=== PATIENT | female | born 1970 | race Caucasian/White ===

== ENCOUNTER 2016-03-11 03:13 | Observation (INO) | payer OTHER ==
[~2016-03-11] VITALS: Ht 160 cm; Wt 121.6 kg
[2016-03-11] VITALS (7 sets, daily range): BP systolic 118–171; BP diastolic 55–85
[2016-03-11] MEDS ORDERED: HYDROmorphone HCL 1 MG/ML SYRINGE (J1170) As Ordered ONE ×2 (03:58→05:36)
[2016-03-11] MEDS ORDERED: ONDANSETRON 4MG/2ML VIAL (J2405) As Ordered ONE ×2 (03:59→15:23)
[2016-03-11] MEDS ORDERED: PROPOFOL 200 MG/20 ML VIAL As Ordered ONE ×2 (04:54→14:44)
[2016-03-11] MEDS ORDERED: KETAMINE HCL 200 MG/20 ML VIAL As Ordered ONE (05:19)
[2016-03-11] MEDS ORDERED: diphenhydrAMINE INJ 50MG/ML VIAL (J1200) As Ordered ONE ×2 (06:24→15:24)
--- NOTE | 2016-03-11 07:28 | REP ---
Clinical: Post reduction. Technique: AP and lateral views of the left wrist. Findings: Comminuted displaced fracture of the distal radius and ulna are again appreciated. Impression: Comminuted displaced fractures of the distal radius and ulna. Signed by Christoph Epstein MD 03/11/2016 07:19 A
--- NOTE | 2016-03-11 08:19 | EDDOCDS ---
Physician Documentation [facility] Name: Sonya Chavez Age: 45 yrs Sex: Female : 1970 Arrival Date: 03/11/2016 Time: 03:13 Bed 3 Private MD: Disposition: 03/11/16 05:53 Hospitalization ordered by Yuval Nesbitt for Inpatient Admission. Preliminary diagnosis is Colles' fracture of left radius. - Bed requested for M PED. - Status is Inpatient Admission. hs1 - Condition is Stable. - Problem is an acute exacerbation. - Symptoms have improved. Historical: - Allergies: Codeine Sulfate; Percocet; Reglan; Phenergan; - Home Meds: 1. Lexapro 30mg Oral tab 1 tab once daily 2. omeprazole 40 mg Oral cpDR 1 cap once daily 3. methotrexate sodium 7.5 mg Oral tab 1 tab once wkly 4. folic acid 20 mg Oral cap 5. Seroquel 200 mg Oral tab 1 tab once daily 6. doxycycline hyclate Unknown Oral for bronchitis and sinus infection - PMHx: GERD; Arthritis; neuropathy; - PSHx: Plates in left ankle - 2000; Plate removal left ankle -2003; Tubal ligation; Cystectomy; - Social history: Smoking status: Patient states was never smoker of tobacco. No barriers to communication noted, The patient speaks fluent Swazi, Speaks appropriately for age. - Family history: Not pertinent. - : The pt / caregiver states he / she is not on anticoagulants. Home medication list is obtained from the patient. - Exposure Risk Screening:: None identified. 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 3 in. (160.02 cm); Pain 6/10; 04:01 BP 141 / 81 (auto/); tm5 04:02 Pulse 80; Resp 18; Pulse Ox 96% ; Pain 8/10; tm5 05:00 BP 145 / 72 (auto/); tm5 05:00 Pulse 96 MON; Pulse Ox 97% ; tm5 05:10 BP 128 / 65 (auto/); tm5 05:10 Pulse 92 MON; Resp 16; Pulse Ox 98% on 4 lpm NC; tm5 05:15 BP 143 / 89 (auto/); tm5 05:15 Pulse 97 MON; Pulse Ox 98% ; tm5 05:22 BP 149 / 96 (auto/); tm5 05:22 Pulse 94 MON; Resp 18 S; Pulse Ox 96% on 4 lpm NC; tm5 05:25 BP 143 / 90 (auto/); tm5 05:25 Pulse 86 MON; Resp 18 S; Pulse Ox 98% on 4 lpm NC; tm5 05:35 BP 141 / 78 (auto/); hs1 05:40 BP 120 / 89 (auto/); tm5 05:40 Pulse 102 MON; Pulse Ox 98% ; tm5 05:45 BP 153 / 82 (auto/); tm5 05:45 Pulse 95 MON; Resp 18 S; Pulse Ox 98% on 4 lpm NC; tm5 06:01 BP 131 / 74 (auto/); tm5 06:01 Pulse 100 MON; tm5 06:16 BP 163 / 69 (auto/); tm5 06:16 Pulse 97 MON; tm5 06:26 BP 148 / 54 (auto/); tm5 06:26 Pulse 95 MON; Resp 18 S; Temp 98.7(TE); Pain 6/10; tm5 06:30 BP 153 / 89 (auto/); tm5 06:30 Pulse 100 MON; Resp 18 S; Temp 98.3(TE); Pulse Ox 93% on R/A; Pain 5/10; tm5 08:04 BP 148 / 91 RA Sitting (auto/lg); Pulse 97; Resp 16; Temp 98.3(O); Pulse Ox 95% on R/A; jrd Pain 7/10; 03:29 Body Mass Index 47.47 (121.56 kg, 160.02 cm) nn1 Procedures: 05:26 Moderate sedation: Pre-procedure assessment: the patient has been NPO 6 hour(s) prior mm11 to arrival, ASA physical classification: II - mild/mod systemic disease that does not interfere with daily routines, Airway assessment: able to hyperextend neck, able to maintain airway, can open mouth without difficulty, Mallampati classification of tongue size: II - faucial pillars and soft palate can be visualized, but uvula is masked by the base of the tongue, Monitoring during procedure: nurse at bedside at all times, athletic monitor, continuous pulse oximetry, End Tidal CO2 Medications employed: Propofol _ mg? 180 mgs. Post-procedure assessment: the patient is mildly sedated, Respiratory status: even and unlabored, a reversal agent was not used, Complications: none. Total time spent by provider performing sedation 15 minutes. MDM: 03:49 IV Saline Lock ordered. mm11 03:50 Dilaudid - HYDROmorphone 0.5 mg IVP once ordered. mm11 03:50 Ondansetron 4 mg IVP once ordered. mm11 04:12 Financial registration complete. [facility] 04:21 [facility] [place] Payment Agreement was scanned into [employer] and attached to record. slh 04:36 NS 0.9% 1000 ml IV at 100 mL/hr continuous ordered. mm11 04:36 Propofol (PF)(Moderate Sedation, 0.5mg/kg) 0.5 mg/kg IVP Per protocol; give every 1-2 mm11 minutes until desired level of sedation ordered. 04:36 Call Respiratory ordered. mm11 04:36 Airway Cart to bedside ordered. mm11 04:36 Continuous Merchandise Director and SaO2 with q 5 minute VS during procedure ordered. mm11 04:36 Initiate continuous wave form capnography monitoring ordered. mm11 04:36 Oxygen at 4L/Min NC or Home dosage ordered. mm11 04:37 ECG WITH READING ER PHYS+CARDIAG ordered. EDMS 04:52 Call Respiratory complete. tmm1 05:12 Propofol (PF)(Moderate Sedation, 0.5mg/kg) 60 mg IVP Per protocol; give every 1-2 mm11 minutes until desired level of sedation ordered. 05:25 Dilaudid - HYDROmorphone 0.5 mg IVP once ordered. mm11 05:44 Wrist (AP\E\Lat) Ordered. EDMS 06:06 Admission Orders was scanned into [employer] and attached to record. tmm1 06:18 diphenhydrAMINE 25 mg IVP once ordered. mm11 06:21 NOTHING BY MOUTH+DIET ordered. EDMS 07:29 Wrist, complete Ordered. EDMS Administered Medications: 04:06 Drug: Dilaudid - HYDROmorphone 0.5 mg [hydromorphone 1 mg/mL injection syringe (0.5 tm5 mL)] Route: IVP; Site: right forearm; 04:51 Follow up: Response: No Adverse Reaction; Pain is decreased tm5 04:06 Drug: Ondansetron 4 mg Route: IVP; Site: right forearm; tm5 04:51 Follow up: Response: Nausea is resolved; No Adverse Reaction tm5 05:01 Drug: NS 0.9% 1000 ml [sodium chloride 0.9 % intravenous solution] Route: IV; Rate: 100 tm5 mL/hr; Site: right forearm; 05:12 Not Given (Other Intervention Used): Propofol (PF)(Moderate Sedation, 0.5mg/kg) 0.5 mm11 mg/kg IVP Per protocol; give every 1-2 minutes until desired level of sedation 05:17 Drug: Propofol (PF)(Moderate Sedation, 0.5mg/kg) 60 mg {Note: 180 mg Propofol given by tm5 Dr Jade.} Route: IVP; Site: right forearm; 05:29 Follow up: Response: No Adverse Reaction tm5 05:38 CANCELLED (Other Intervention Used): Propofol (PF, 1mg/kg) 120 mg IVP once mm11 05:38 Drug: Dilaudid - HYDROmorphone 0.5 mg [hydromorphone 1 mg/mL injection syringe (0.5 tm5 mL)] Route: IVP; Site: right forearm; 06:27 Follow up: Response: No Adverse Reaction; Pain is decreased tm5 06:27 Drug: diphenhydrAMINE 25 mg [diphenhydramine 50 mg/mL injection solution (0.5 mL)] tm5 Route: IVP; Site: right forearm; Signatures: Dispatcher [employer] Ishmael Song DO DO mm11 Anahi Balderas RN RN hs1 McLear, Neyda, CARROT GRADER INSPECTOR CARROT GRADER INSPECTOR tmm1 Lizzette Unger NikkoleRN RN nn1 Loi Cuevas RN RN sa Matice, TonyaRN RN tm5 The chart was reviewed and I authenticate all verbal orders and agree with the evaluation and treatment provided.Corrections: (The following items were deleted from the chart) 05:38 05:25 Propofol (PF, 1mg/kg) 120 mg IVP once ordered. mm11 mm11 05:38 05:28 Propofol (PF, 1mg/kg) 120 mg IVP once ordered. tm5 mm11 06:18 05:26 Forearm (Radius/Ulna)+XR ordered. EDMS EDMS Attachments: 04:21 [facility] Payment Agreement [facility] 06:06 Admission Orders tmm1 MTDD
--- NOTE | 2016-03-11 08:19 | EDDOCDS ---
Nurse's Notes [facility] Name: Sonya Chavez Age: 45 yrs Sex: Female : 1970 Arrival Date: 03/11/2016 Time: 03:13 Bed 3 Private MD: Diagnosis: Colles' fracture of left radius Presentation: 03/11 03:21 Presenting complaint: Patient states: seen at [place] ED earlier today, came by POV. nn1 Patient reports she was walking down steps, missed the last step and fell face first. Injured left arm. Per prior ED radiology patient has displaced distal radius of left arm. Patient also reporting pain to left ankle. Suicide/Homicide risk assessment- the patient denies having any suicidal and/or homicidal ideations and does not present with any other emotional, behavioral or mental health complaints. Status: Patient is not a service person or dependent. Transition of care: patient was received from [place]. 03:21 Acuity: MAYTE Level 3 nn1 03:21 Method Of Arrival: Walkin/Carried/Asstd nn1 06:29 Adult Sepsis Screening: The patient does not have new or worsening altered mentation. tm5 Patient's respiratory rate is less than 22. Systolic blood pressure is greater than 100. Patient has a qSOFA score of 0- Negative Sepsis Screen. Triage Assessment: 03:31 General: Appears uncomfortable. General: Patient given 60mg toradol IM, 10mg morphine nn1 IM, 4mg zofran IM prior to leaving ED in [place]. . General: Patient reports pain is becoming worse. Patients left arm splinted upon arrival to ED. . Pain: Location: left arm Pain currently is 6 out of 10 on a pain scale. Pain: Pain currently is 8 out of 10 on a pain scale. Pt Declines HIV testing. The patient is triaged at the bedside. See Assessment in Nurses Notes section of ED record. Neurological: Level of Consciousness is awake, alert, obeys commands, Oriented to person, place, time. Respiratory: No deficits noted. Derm: Skin is pink, warm & dry. Musculoskeletal: Capillary refill < 3 seconds Range of motion limited in left elbow and left wrist Patient reports limited sensation in pointer finger and middle finger of left hand. 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 Lexapro 30mg Oral tab 1 tab once daily 2. omeprazole 40 mg Oral cpDR 1 cap once daily 3. methotrexate sodium 7.5 mg Oral tab 1 tab once wkly 4. folic acid 20 mg Oral cap 5. Seroquel 200 mg Oral tab 1 tab once daily 6. doxycycline hyclate Unknown Oral for bronchitis and sinus infection - PMHx: GERD; Arthritis; neuropathy; - PSHx: Plates in left ankle - 2000; Plate removal left ankle -2003; Tubal ligation; Cystectomy; - Social history: Smoking status: Patient states was never smoker of tobacco. No barriers to communication noted, The patient speaks fluent Macedonian, Speaks appropriately for age. - Family history: Not pertinent. - : The pt / caregiver states he / she is not on anticoagulants. Home medication list is obtained from the patient. - Exposure Risk Screening:: None identified. Screenin:34 Screening information is obtained from the patient. Fall risk: At risk due to prior nn1 history of falls. Assistance ADL's: requires no assistance with activities of daily living. Abuse/DV Screen: The patient / caregiver reports he/she is: not in a situation that causes fear, pain or injury. Nutritional screening: No deficits noted. Advance Directives: Currently, there is no health care proxy. There is no active DNR order. There is no living will. home support is adequate. Assessment: 04:02 General: Appears in no apparent distress, Behavior is appropriate for age, cooperative. tm5 Pain: Location: left wrist, left arm Pain currently is 8 out of 10 on a pain scale. Quality of pain is described as sharp, throbbing. Neurological: Level of Consciousness is awake, alert, Oriented to person, place, time. Respiratory: Airway is patent Respiratory effort is even, unlabored, Respiratory pattern is regular, symmetrical. GI: No deficits noted. : No deficits noted. Derm: Skin is pink, warm & dry. normal. Musculoskeletal: Reports pain in left wrist, left arm pt arrived from another facility with a cock up splint intact to left wrist for left wrist fracture, +CMS, +ROM of left fingers. Injury Description: pt fell from standing. 05:48 General: Dr Nesbitt at bedside speaks to pt about taking her to the OR to repair left tm5 wrist fracture today, pt alert & oriented at this time & talkative, + CMS to left fingers, + ROM to left fingers also . 07:14 General: Appears in no apparent distress, Behavior is appropriate for age, cooperative. hs1 Pain: Location: left arm Pain currently is 2 out of 10 on a pain scale. Quality of pain is described as throbbing. Neurological: No deficits noted. Respiratory: No deficits noted. GI: other patient is aware of NPO status. Derm: Reports itching - as a side effect from pain medication. 08:04 General: Appears in no apparent distress, Behavior is appropriate for age, cooperative, hs1 patient reports very itchy. MD returned call no new orders received by Dr Villa. Pediatric nurses aware of patient and subsequent phone call with Ortho MD regarding itching/anxiety. . Respiratory: No deficits noted. Airway is patent Respiratory effort is even, unlabored, Respiratory pattern is regular, symmetrical. Vital Signs: 03:29 BP 148 / 89; Pulse 89; Resp 18; Temp 98.3(TE); Pulse Ox 96% on R/A; Weight 121.56 kg nn1 (R); Height 5 ft. 3 in. (160.02 cm); Pain 6/10; 04:01 BP 141 / 81 (auto/); tm5 04:02 Pulse 80; Resp 18; Pulse Ox 96% ; Pain 8/10; tm5 05:00 BP 145 / 72 (auto/); tm5 05:00 Pulse 96 MON; Pulse Ox 97% ; tm5 05:10 BP 128 / 65 (auto/); tm5 05:10 Pulse 92 MON; Resp 16; Pulse Ox 98% on 4 lpm NC; tm5 05:15 BP 143 / 89 (auto/); tm5 05:15 Pulse 97 MON; Pulse Ox 98% ; tm5 05:22 BP 149 / 96 (auto/); tm5 05:22 Pulse 94 MON; Resp 18 S; Pulse Ox 96% on 4 lpm NC; tm5 05:25 BP 143 / 90 (auto/); tm5 05:25 Pulse 86 MON; Resp 18 S; Pulse Ox 98% on 4 lpm NC; tm5 05:35 BP 141 / 78 (auto/); hs1 05:40 BP 120 / 89 (auto/); tm5 05:40 Pulse 102 MON; Pulse Ox 98% ; tm5 05:45 BP 153 / 82 (auto/); tm5 05:45 Pulse 95 MON; Resp 18 S; Pulse Ox 98% on 4 lpm NC; tm5 06:01 BP 131 / 74 (auto/); tm5 06:01 Pulse 100 MON; tm5 06:16 BP 163 / 69 (auto/); tm5 06:16 Pulse 97 MON; tm5 06:26 BP 148 / 54 (auto/); tm5 06:26 Pulse 95 MON; Resp 18 S; Temp 98.7(TE); Pain 6/10; tm5 06:30 BP 153 / 89 (auto/); tm5 06:30 Pulse 100 MON; Resp 18 S; Temp 98.3(TE); Pulse Ox 93% on R/A; Pain 5/10; tm5 08:04 BP 148 / 91 RA Sitting (auto/lg); Pulse 97; Resp 16; Temp 98.3(O); Pulse Ox 95% on R/A; jrd Pain 7/10; 03:29 Body Mass Index 47.47 (121.56 kg, 160.02 cm) nn1 Vitals: 03:29 Log In Time: March 11, 2016 at 03:16. nn1 ED Course: 03:15 Patient visited by Jory Quiroz Reg. hs2 03:15 Patient moved to Waiting hs2 03:21 Patient moved to 3 nn1 03:23 Triage Initiated nn1 03:36 Ishmael Jade DO is Attending Physician. mm11 03:36 Patient visited by Ishmael Jade DO. mm11 03:49 Patient visited by Ishmael Jade DO. mm11 03:55 Inserted saline lock: 20 gauge in right forearm The patient tolerated the procedure tm5 well. 04:02 Patient visited by Nataliia Robledo RN. tm5 04:02 The patient / caregiver is instructed regarding the plan of care and ED course. Pulse tm5 ox on. NIBP on. left arm elevated up on pillows . Family accompanied patient. 04:21 Patient name changed from Sonya\S\A\S\Chavez\S\ to Sonya\S\Sully\S\Chavez. EDMS 04:21 [facility] [place] Payment Agreement was scanned into [employer] and attached to record. [facility] 04:34 Patient visited by Ishmael Jade DO. mm11 05:14 EKG done. (by ED staff). Reviewed by Ishmael Jade DO. jmv 05:24 Patient visited by Ishmael Jade DO. mm11 05:52 Yuval Nesbitt is Hospitalizing Provider. mm11 06:06 Admission Orders was scanned into [employer] and attached to record. tmm1 06:28 Awaiting bed assignment. tm5 06:29 No procedures done that require assistance. tm5 06:50 Patient visited by Nataliia Robledo RN. tm5 07:32 Wrist (AP\E\Lat) Returned. EDMS 08:05 Patient visited by James Gomez PCA. jrd M. Sedation: 05:08 Pre-procedure: Name of procedure: left wrist fracture reduction Monitoring RN: Nataliia tm5 Meena RN Other Staff: Dr Nesbitt, Respiratory therapy Derik Keller Reviewed instructions and expectations with patient, Has had drug/anesthesia reactions to known per pt Reviewed patient's current meds list. playground monitor on. Cardiac rhythm Sinus rhythm Pulse ox on. Oxygen via nasal cannula \T\ 4L/min 05:08 Q 5 minute assessment Level of Consciousness: Alert / Oriented Color: [place] Skin: Warm / Dry Pain: 05:08 See Trend VS 05:16 Pre-procedure: Other Staff: Dr Jade pushing medications tm5 05:16 Intra-procedure: Procedure began at 05:16 05:16 Intra-procedure: Patient response: remains sedated, skin warm/dry, obeys commands, resps even/unlabored, IV patent. 05:32 Post-procedure: Procedure ended at 05:22 the total procedure time was less than [address] Nesbitt splinted left wrist & elevated left arm up on pillow, pt is awake & complains of pain to left wrist 07/30 05:45 Meets D/C Criteria: Taking PO fluids, Skin is warm and dry, LOC is at preprocedure tm5 level, Motor / Sensory control is returned, Protective reflexes are intact, Written post-sedation instructions are given, Pt is admitted to hospital or transferred to another facility. Administered Medications: 04:06 Drug: Dilaudid - HYDROmorphone 0.5 mg [hydromorphone 1 mg/mL injection syringe (0.5 tm5 mL)] Route: IVP; Site: right forearm; 04:51 Follow up: Response: No Adverse Reaction; Pain is decreased tm5 04:06 Drug: Ondansetron 4 mg Route: IVP; Site: right forearm; tm5 04:51 Follow up: Response: Nausea is resolved; No Adverse Reaction tm5 05:01 Drug: NS 0.9% 1000 ml [sodium chloride 0.9 % intravenous solution] Route: IV; Rate: 100 tm5 mL/hr; Site: right forearm; 05:12 Not Given (Other Intervention Used): Propofol (PF)(Moderate Sedation, 0.5mg/kg) 0.5 mm11 mg/kg IVP Per protocol; give every 1-2 minutes until desired level of sedation 05:17 Drug: Propofol (PF)(Moderate Sedation, 0.5mg/kg) 60 mg {Note: 180 mg Propofol given by tm5 Dr Jade.} Route: IVP; Site: right forearm; 05:29 Follow up: Response: No Adverse Reaction tm5 05:38 CANCELLED (Other Intervention Used): Propofol (PF, 1mg/kg) 120 mg IVP once mm11 05:38 Drug: Dilaudid - HYDROmorphone 0.5 mg [hydromorphone 1 mg/mL injection syringe (0.5 tm5 mL)] Route: IVP; Site: right forearm; 06:27 Follow up: Response: No Adverse Reaction; Pain is decreased tm5 06:27 Drug: diphenhydrAMINE 25 mg [diphenhydramine 50 mg/mL injection solution (0.5 mL)] 5 Route: IVP; Site: right forearm; RT: 05:43 Sedation Time: 35Minutes. O2 via nasal cannula \T\ 4L/min. jc3 05:43 O2 via ETCO2 on patient throughout procedure. jc3 Order Results: Radiology Order: Wrist (AP\E\Lat) Test: Wrist (AP\E\Lat) REASON FOR EXAMINATION: post reduction; Clinical: Post reduction.; ; Technique: AP and lateral views of the left wrist.; ; Findings:; Comminuted displaced fracture of the distal radius and ulna are again; appreciated.; ; Impression:; Comminuted displaced fractures of the distal radius and ulna.; ; ; Signed by; Christoph Epstein MD 03/11/2016 07:19 A; Outcome: 05:53 Decision to Hospitalize by Provider. mm11 06:29 Discharge Assessment: patient administered narcotics - yes. Patient was admitted to the [address] or transferred to another facility. No special radiology studies were completed. 08:05 The following High Risk Discharge criteria are identified: None. Admitted to Pediatrics hs1 accompanied by nurse, accompanied by tech, via wheelchair, with chart. Condition: stable. Admission hand-off: Report called to Jodee DRUMMOND. Property sent home with patient. 08:18 Patient left the ED. [facility] Signatures: Dispatcher [employer] EDMS Ishmael Jade, DO mm11 James Chaves jc3 Anahi Balderas RN RN hs1 Neyda Looney, INTERN ARCHITECT INTERN ARCHITECT tmm1 James Gomez, INTERN ARCHITECT INTERN ARCHITECT Lizzette Cullen Nikkole, RN RN nn1 Jory Quiroz, Reg Reg hs2 Bear Willson, INTERN ARCHITECT INTERN ARCHITECT Nataliia Hoover RN RN 5 Corrections: (The following items were deleted from the chart) 03:35 03:21 Nicole Sandoval,HODA is Primary Nurse. formerly [facility], [id number] 03:43 03:29 BP 148 / 289; Pulse 89bpm; Resp 18bpm; Pulse Ox 96% RA; Temp 98.3F Temporal; nn1 121.56 kg Reported; Height 5 ft. 3 in.; BMI: 47.4; Pain 6/10; nn1 05:19 05:17 Propofol (PF)(Moderate Sedation, 0.5mg/kg) 60 mg IVP in right forearm [place] [id number] 05:28 05:20 Propofol (PF, 1mg/kg) 120 mg IVP in right forearm [place] [id number] 05:44 05:17 Propofol (PF)(Moderate Sedation, 0.5mg/kg) 60 mg IVP in right forearm [facility] MTDD
[2016-03-11] MEDS ORDERED: FOLI1TAB2 PO (08:59)
[2016-03-11] MEDS ORDERED: LEXA1TAB PO (08:59)
[2016-03-11] MEDS ORDERED: METH2.5TA PO (08:59)
[2016-03-11] MEDS ORDERED: SERO200T PO (08:59)
[2016-03-11] MEDS ORDERED: OMEP40CA2 PO (08:59)
[2016-03-11] MEDS ORDERED: PERC5TAB6 PO (09:00)
[2016-03-11] MEDS ORDERED: ONDANSETRON 4 MG TAB (S0181) PO PRN (09:30)
[2016-03-11] MEDS ORDERED: PERCOCET 5MG/325MG TAB PO PRN ×3 (09:30→18:15)
[2016-03-11] MEDS: diphenhydrAMINE 25 MG CAP PO PRN ×2 (09:35→18:46)
[2016-03-11] MEDS ORDERED: TRAM50TA2 PO (09:38)
[2016-03-11] MEDS ORDERED: traMADol 50 MG TAB PO PRN (09:45)
[2016-03-11] MEDS ORDERED: KETOROLAC 30 MG/ML VIAL (J1885) IV ONE (09:45)
[2016-03-11] MEDS ORDERED: ACETAMINOPHEN TAB 650MG DOSE (2X325MG) PO PRN (10:00)
--- NOTE | 2016-03-11 11:21 | ER ---
DATE OF PROCEDURE: 03/11/2016 She is a 45-year-old female with a past medical history of anxiety, depression, rheumatoid arthritis, and gastroesophageal reflux disease, who was in her normal state of health and missed a step, falling to her left outstretched upper extremities, sustaining a closed distal radius and ulna fracture. She was seen in [place] at the emergency room and transferred to [facility] for more definitive care in a splint. PAST SURGICAL HISTORY: Significant for left leg by Dr. Riley at [facility], as well as six excisions from her submandibular area and chest. ALLERGIES: No allergies. SOCIAL HISTORY: Denies smoking. No current drinking because of her current medications, which include: - methotrexate - Seroquel - omeprazole - Lexapro PHYSICAL EXAMINATION: She has pain and deformity in the left upper extremity, the distal radius. She is neurovascularly intact in regard to the radial ulnar median nerve. No tenderness at the elbow. No other complaints. X-rays demonstrated displaced extraarticular distal radius and ulna fracture. IMPRESSION: Displaced extraarticular distal radius and ulna fracture. RECOMMENDATION: Closed reduction and splinting. Post reduction splint x-rays demonstrated suboptimal reduction and current plan is open reduction, internal fixation (ORIF) in the operating room when available.
[2016-03-11] MEDS ORDERED: ceFAZolin 1GM INJ (J0690) As Ordered ONE (13:40)
[2016-03-11] MEDS ORDERED: LIDOCAINE 2% INJ 100 MG/5 ML SDV (FOR ANES.) As Ordered ONE (14:44)
[2016-03-11] MEDS ORDERED: dexameTHASONE 4 MG/ML 1ML VIAL (J1100) As Ordered ONE (14:44)
[2016-03-11] MEDS ORDERED: MIDAZOLAM INJ 2 MG/2 ML VIAL (J2250) As Ordered ONE (14:44)
[2016-03-11] MEDS ORDERED: fentaNYL 100 MCG/2 ML INJECTION (J3010) As Ordered ONE ×3 (14:44→16:21)
[2016-03-11] MEDS ORDERED: ROCURONIUM BROMIDE 50 MG/5 ML VIAL As Ordered ONE (14:44)
[2016-03-11] MEDS ORDERED: ePHEDrine SULFATE 25 MG/5 ML(5MG/ML) SYRINGE As Ordered ONE (14:49)
[2016-03-11] MEDS ORDERED: ceFAZolin 1GM INJ (J0690) IR ONE (14:57)
[2016-03-11] MEDS ORDERED: NEOSTIGMINE 1MG/ML 5 ML SYRINGE (J2710) As Ordered ONE (15:23)
[2016-03-11] MEDS ORDERED: KETOROLAC 60 MG/2 ML VIAL (J1885) As Ordered ONE (15:23)
[2016-03-11] MEDS ORDERED: GLYCOPYRROLATE INJ 0.2 MG/ML 2 ML VIAL As Ordered ONE (15:23)
[2016-03-11] MEDS ORDERED: BUPIVACAINE HCL 0.5% 30 ML VIAL As Ordered ONE (15:36)
[2016-03-11] MEDS ORDERED: PERCOCET 5MG/325MG TAB As Ordered ONE ×2 (16:21→16:43)
[2016-03-11] MEDS: fentaNYL 100 MCG/2 ML INJECTION (J3010) IV PRN ×4 (16:23→16:40)
[2016-03-11] MEDS: PERCOCET 5MG/325MG TAB PO PRN ×2 (16:28→16:50)
[2016-03-11] MEDS ORDERED: LR 1,000 ML IV SCH (16:30)
[2016-03-11] MEDS ORDERED: ONDANSETRON 4MG/2ML VIAL (J2405) IV PRN (16:30)
[2016-03-11] MEDS ORDERED: diphenhydrAMINE INJ 50MG/ML VIAL (J1200) IV PRN (16:30)
[2016-03-11] MEDS ORDERED: KETOROLAC 30 MG/ML VIAL (J1885) IV PRN (16:30)
--- NOTE | 2016-03-11 16:46 | REP ---
LEFT WRIST, FOUR VIEWS: HISTORY: Fracture. COMPARISON: 03/11/2016 Four portable radiographs were obtained with a C-ARM. The patient is status-post ORIF of a comminuted fracture of the distal radius. A metal plate a screws are present. There is a comminuted fracture of the distal ulna. There is anatomic alignment. IMPRESSION: The patient is status-post ORIF of a fracture of the distal radius. There is anatomic alignment. Signed by Damaso Amador MD 03/14/2016 08:33 A
[2016-03-11] MEDS ORDERED: diphenhydrAMINE 25 MG CAP PO PRN (18:15)
[2016-03-11] MEDS ORDERED: MORPHINE 2 MG/ML 1ML SYRINGE IV PRN (18:15)
[2016-03-11] MEDS: traMADol 50 MG TAB PO PRN (20:34)
--- NOTE | 2016-03-11 20:38 | RO ---
DATE OF PROCEDURE: 03/11/2016 PREPROCEDURE DIAGNOSIS: Intraarticular distal radius fracture on the left side. POSTPROCEDURE DIAGNOSIS: Intraarticular distal radius fracture on the left side. PROCEDURE PERFORMED: Open reduction and internal fixation (ORIF) with Daron plate and screw construct. SURGEON: Yuval Nesbitt MD BUSINESS SOLUTIONS ANALYST: Theresa Hameed ANESTHESIOLOGIST: Dr. Ellis TOURNIQUET TIME: Less than one hour at 250 mmHg. COMPLICATIONS: None. BLOOD LOSS: Minimal. INDICATIONS: 45-year-old female with an unstable left intraarticular distal radius fracture. After discussing the risks and benefits of operative intervention, she elected to proceed. DESCRIPTION OF PROCEDURE: The patient was met in the preoperative holding area. The operative site was initialed by the surgeon. IV access was verified. Consent was verified. She was taken to the operative suite. She was prepped and draped in the usual sterile fashion in the supine position with her arm over the hand table. Formal time out was performed. IV antibiotics were infused. Preoperative fluoroscopic images were obtained demonstrating an intraarticular fracture. We inflated the tourniquet and made a standard volar approach to the wrist through the floor of the flexor carpi radialis tendon sheath and quickly identified the pronator quadratus. We were careful to avoid the neurovascular structures medially and laterally to the approach. We detached the pronator quadratus from the distal radius to expose the fracture site. We irrigated copiously to clear away any fracture hematoma. We performed a partial reduction and held it in place with a K wire and the radial styloid. We next chose a four hole distal radius locking plate and positioned it on the volar surface of the radius and placed the screw in the sliding hole and verified its position fluoroscopically and clinically in orthogonal planes. Once this was in acceptable position, we sequentially added distal compression and locking screws. We filled the holes in the plate, constantly verifying the position of the hardware and the fracture. No hardware was in the radiocarpal joint at the end of the procedure and the radial inclination, radial height and volar tilt were all restored with the fixation in place. She was irrigated, copiously closed in layers, and placed in a sterile volar splint, awakened and taken to the recovery room in stable condition. Postoperative examination immediately demonstrated full sensation in the radial, ulna and medial nerve distribution in full range of motion of the digits. She will be discharged when she is comfortable and followup in the orthopedic clinic with Branson Rickey in the next 10 days or so.
[2016-03-12] VITALS: BP 117/61
[2016-03-12 04:00] VITALS: BP 103/56
[2016-03-12] MEDS: traMADol 50 MG TAB PO PRN (06:41)
[2016-03-12] MEDS ORDERED: PERC5TAB6 PO (06:44)
[2016-03-12] MEDS ORDERED: BENA25TA9 PO (06:50)
[2016-03-12 08:00] VITALS: BP 117/59
--- NOTE | 2016-03-12 08:03 | ECGEPIP ---
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
--- NOTE | 2016-03-13 09:18 | EDDOCDS ---
Physician Documentation [facility] Name: Sonya Chavez Age: 45 yrs Sex: Female : 1970 Arrival Date: 03/11/2016 Time: 03:13 Bed 3 Private MD: Disposition: 03/11/16 05:53 Hospitalization ordered by Yuval Nesbitt for Inpatient Admission. Preliminary diagnosis is Colles' fracture of left radius. - Bed requested for M PED. - Status is Inpatient Admission. hs1 - Condition is Stable. - Problem is an acute exacerbation. - Symptoms have improved. Historical: - Allergies: Codeine Sulfate; Percocet; Reglan; Phenergan; - Home Meds: 1. Lexapro 30mg Oral tab 1 tab once daily 2. omeprazole 40 mg Oral cpDR 1 cap once daily 3. methotrexate sodium 7.5 mg Oral tab 1 tab once wkly 4. folic acid 20 mg Oral cap 5. Seroquel 200 mg Oral tab 1 tab once daily 6. doxycycline hyclate Unknown Oral for bronchitis and sinus infection - PMHx: GERD; Arthritis; neuropathy; - PSHx: Plates in left ankle - 2000; Plate removal left ankle -2003; Tubal ligation; Cystectomy; - Social history: Smoking status: Patient states was never smoker of tobacco. No barriers to communication noted, The patient speaks fluent Taiwanese, Speaks appropriately for age. - Family history: Not pertinent. - : The pt / caregiver states he / she is not on anticoagulants. Home medication list is obtained from the patient. - Exposure Risk Screening:: None identified. 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 3 in. (160.02 cm); Pain 6/10; 04:01 BP 141 / 81 (auto/); tm5 04:02 Pulse 80; Resp 18; Pulse Ox 96% ; Pain 8/10; tm5 05:00 BP 145 / 72 (auto/); tm5 05:00 Pulse 96 MON; Pulse Ox 97% ; tm5 05:10 BP 128 / 65 (auto/); tm5 05:10 Pulse 92 MON; Resp 16; Pulse Ox 98% on 4 lpm NC; tm5 05:15 BP 143 / 89 (auto/); tm5 05:15 Pulse 97 MON; Pulse Ox 98% ; tm5 05:22 BP 149 / 96 (auto/); tm5 05:22 Pulse 94 MON; Resp 18 S; Pulse Ox 96% on 4 lpm NC; tm5 05:25 BP 143 / 90 (auto/); tm5 05:25 Pulse 86 MON; Resp 18 S; Pulse Ox 98% on 4 lpm NC; tm5 05:35 BP 141 / 78 (auto/); hs1 05:40 BP 120 / 89 (auto/); tm5 05:40 Pulse 102 MON; Pulse Ox 98% ; tm5 05:45 BP 153 / 82 (auto/); tm5 05:45 Pulse 95 MON; Resp 18 S; Pulse Ox 98% on 4 lpm NC; tm5 06:01 BP 131 / 74 (auto/); tm5 06:01 Pulse 100 MON; tm5 06:16 BP 163 / 69 (auto/); tm5 06:16 Pulse 97 MON; tm5 06:26 BP 148 / 54 (auto/); tm5 06:26 Pulse 95 MON; Resp 18 S; Temp 98.7(TE); Pain 6/10; tm5 06:30 BP 153 / 89 (auto/); tm5 06:30 Pulse 100 MON; Resp 18 S; Temp 98.3(TE); Pulse Ox 93% on R/A; Pain 5/10; tm5 08:04 BP 148 / 91 RA Sitting (auto/lg); Pulse 97; Resp 16; Temp 98.3(O); Pulse Ox 95% on R/A; jrd Pain 7/10; 03:29 Body Mass Index 47.47 (121.56 kg, 160.02 cm) nn1 Procedures: 05:26 Moderate sedation: Pre-procedure assessment: the patient has been NPO 6 hour(s) prior mm11 to arrival, ASA physical classification: II - mild/mod systemic disease that does not interfere with daily routines, Airway assessment: able to hyperextend neck, able to maintain airway, can open mouth without difficulty, Mallampati classification of tongue size: II - faucial pillars and soft palate can be visualized, but uvula is masked by the base of the tongue, Monitoring during procedure: nurse at bedside at all times, learning support teacher, continuous pulse oximetry, End Tidal CO2 Medications employed: Propofol _ mg? 180 mgs. Post-procedure assessment: the patient is mildly sedated, Respiratory status: even and unlabored, a reversal agent was not used, Complications: none. Total time spent by provider performing sedation 15 minutes. MDM: 03:49 IV Saline Lock ordered. mm11 03:50 Dilaudid - HYDROmorphone 0.5 mg IVP once ordered. mm11 03:50 Ondansetron 4 mg IVP once ordered. mm11 04:12 Financial registration complete. [facility] 04:21 [facility] [place] Agreement was scanned into [facility] and attached to record. slh 04:36 NS 0.9% 1000 ml IV at 100 mL/hr continuous ordered. mm11 04:36 Propofol (PF)(Moderate Sedation, 0.5mg/kg) 0.5 mg/kg IVP Per protocol; give every 1-2 mm11 minutes until desired level of sedation ordered. 04:36 Call Respiratory ordered. mm11 04:36 Airway Cart to bedside ordered. mm11 04:36 Continuous Typewriter Operator Automatic and SaO2 with q 5 minute VS during procedure ordered. mm11 04:36 Initiate continuous wave form capnography monitoring ordered. mm11 04:36 Oxygen at 4L/Min NC or Home dosage ordered. mm11 04:37 ECG WITH READING ER PHYS+CARDIAG ordered. EDMS 04:52 Call Respiratory complete. tmm1 05:12 Propofol (PF)(Moderate Sedation, 0.5mg/kg) 60 mg IVP Per protocol; give every 1-2 mm11 minutes until desired level of sedation ordered. 05:25 Dilaudid - HYDROmorphone 0.5 mg IVP once ordered. mm11 05:44 Wrist (AP\E\Lat) Ordered. EDMS 06:06 Admission Orders was scanned into [facility] and attached to record. tmm1 06:18 diphenhydrAMINE 25 mg IVP once ordered. mm11 06:21 NOTHING BY MOUTH+DIET ordered. EDMS 07:29 Wrist, complete Ordered. EDMS 14:13 T-Sheet-- Draft Copy was scanned into [facility] and attached to record. gb 14:13 ECG/EKG was scanned into [facility] and attached to record. gb 14:14 Consents was scanned into [facility] and attached to record. gb 14:14 [place] Protocol was scanned into [facility] and attached to record. gb Administered Medications: 04:06 Drug: Dilaudid - HYDROmorphone 0.5 mg [hydromorphone 1 mg/mL injection syringe (0.5 tm5 mL)] Route: IVP; Site: right forearm; 04:51 Follow up: Response: No Adverse Reaction; Pain is decreased tm5 04:06 Drug: Ondansetron 4 mg Route: IVP; Site: right forearm; tm5 04:51 Follow up: Response: Nausea is resolved; No Adverse Reaction tm5 05:01 Drug: NS 0.9% 1000 ml [sodium chloride 0.9 % intravenous solution] Route: IV; Rate: 100 tm5 mL/hr; Site: right forearm; 05:12 Not Given (Other Intervention Used): Propofol (PF)(Moderate Sedation, 0.5mg/kg) 0.5 mm11 mg/kg IVP Per protocol; give every 1-2 minutes until desired level of sedation 05:17 Drug: Propofol (PF)(Moderate Sedation, 0.5mg/kg) 60 mg {Note: 180 mg Propofol given by tm5 Dr Jade.} Route: IVP; Site: right forearm; 05:29 Follow up: Response: No Adverse Reaction tm5 05:38 CANCELLED (Other Intervention Used): Propofol (PF, 1mg/kg) 120 mg IVP once mm11 05:38 Drug: Dilaudid - HYDROmorphone 0.5 mg [hydromorphone 1 mg/mL injection syringe (0.5 tm5 mL)] Route: IVP; Site: right forearm; 06:27 Follow up: Response: No Adverse Reaction; Pain is decreased tm5 06:27 Drug: diphenhydrAMINE 25 mg [diphenhydramine 50 mg/mL injection solution (0.5 mL)] tm5 Route: IVP; Site: right forearm; Signatures: Dispatcher [employer] EDMS Wendi Mchugh, Reg Reg Ishmael Momin, DO mm11 Anahi Balderas RN RN hs1 McLear, Neyda, 7TH GRADE SOCIAL STUDIES TEACHER 7TH GRADE SOCIAL STUDIES TEACHER tmm1 Lizzette Unger Nikkole, RN RN nn1 Loi Cuevas RN RN sa Nataliia Robledo RN RN tm5 The chart was reviewed and I authenticate all verbal orders and agree with the evaluation and treatment provided.Corrections: (The following items were deleted from the chart) 05:38 05:25 Propofol (PF, 1mg/kg) 120 mg IVP once ordered. mm11 mm11 05:38 05:28 Propofol (PF, 1mg/kg) 120 mg IVP once ordered. tm5 mm11 06:18 05:26 Forearm (Radius/Ulna)+XR ordered. EDMS EDMS Attachments: 04:21 [facility] Payment Agreement special care hospital 06:06 Admission Orders tmm1 14:13 T-Sheet-- Draft Copy gb 14:13 ECG/EKG gb Chart Complete MTDD
--- NOTE | 2016-03-13 09:18 | EDDOCDS ---
Nurse's Notes [facility] Name: Sonya Chavez Age: 45 yrs Sex: Female : 1970 Arrival Date: 03/11/2016 Time: 03:13 Bed 3 Private MD: Diagnosis: Colles' fracture of left radius Presentation: 03/11 03:21 Presenting complaint: Patient states: seen at [place] ED earlier today, came by POV. nn1 Patient reports she was walking down steps, missed the last step and fell face first. Injured left arm. Per prior ED radiology patient has displaced distal radius of left arm. Patient also reporting pain to left ankle. Suicide/Homicide risk assessment- the patient denies having any suicidal and/or homicidal ideations and does not present with any other emotional, behavioral or mental health complaints. Status: Patient is not a director of customer service or dependent. Transition of care: patient was received from [place]. 03:21 Acuity: MAYTE Level 3 nn1 03:21 Method Of Arrival: Walkin/Carried/Asstd nn1 06:29 Adult Sepsis Screening: The patient does not have new or worsening altered mentation. tm5 Patient's respiratory rate is less than 22. Systolic blood pressure is greater than 100. Patient has a qSOFA score of 0- Negative Sepsis Screen. Triage Assessment: 03:31 General: Appears uncomfortable. General: Patient given 60mg toradol IM, 10mg morphine nn1 IM, 4mg zofran IM prior to leaving ED in [place]. . General: Patient reports pain is becoming worse. Patients left arm splinted upon arrival to ED. . Pain: Location: left arm Pain currently is 6 out of 10 on a pain scale. Pain: Pain currently is 8 out of 10 on a pain scale. Pt Declines HIV testing. The patient is triaged at the bedside. See Assessment in Nurses Notes section of ED record. Neurological: Level of Consciousness is awake, alert, obeys commands, Oriented to person, place, time. Respiratory: No deficits noted. Derm: Skin is pink, warm & dry. Musculoskeletal: Capillary refill < 3 seconds Range of motion limited in left elbow and left wrist Patient reports limited sensation in pointer finger and middle finger of left hand. DIRECTOR OF MEDIA: 03:29 LMP N/A - Uterine ablation nn1 Historical: - Allergies: Codeine Sulfate; Percocet; Reglan; Phenergan; - Home Meds: 1. Lexapro 30mg Oral tab 1 tab once daily 2. omeprazole 40 mg Oral cpDR 1 cap once daily 3. methotrexate sodium 7.5 mg Oral tab 1 tab once wkly 4. folic acid 20 mg Oral cap 5. Seroquel 200 mg Oral tab 1 tab once daily 6. doxycycline hyclate Unknown Oral for bronchitis and sinus infection - PMHx: GERD; Arthritis; neuropathy; - PSHx: Plates in left ankle - 2000; Plate removal left ankle -2003; Tubal ligation; Cystectomy; - Social history: Smoking status: Patient states was never smoker of tobacco. No barriers to communication noted, The patient speaks fluent Upper Sorbian, Speaks appropriately for age. - Family history: Not pertinent. - : The pt / caregiver states he / she is not on anticoagulants. Home medication list is obtained from the patient. - Exposure Risk Screening:: None identified. Screenin:34 Screening information is obtained from the patient. Fall risk: At risk due to prior nn1 history of falls. Assistance ADL's: requires no assistance with activities of daily living. Abuse/DV Screen: The patient / caregiver reports he/she is: not in a situation that causes fear, pain or injury. Nutritional screening: No deficits noted. Advance Directives: Currently, there is no health care proxy. There is no active DNR order. There is no living will. home support is adequate. Assessment: 04:02 General: Appears in no apparent distress, Behavior is appropriate for age, cooperative. tm5 Pain: Location: left wrist, left arm Pain currently is 8 out of 10 on a pain scale. Quality of pain is described as sharp, throbbing. Neurological: Level of Consciousness is awake, alert, Oriented to person, place, time. Respiratory: Airway is patent Respiratory effort is even, unlabored, Respiratory pattern is regular, symmetrical. GI: No deficits noted. : No deficits noted. Derm: Skin is pink, warm & dry. normal. Musculoskeletal: Reports pain in left wrist, left arm pt arrived from another facility with a cock up splint intact to left wrist for left wrist fracture, +CMS, +ROM of left fingers. Injury Description: pt fell from standing. 05:48 General: Dr Nesbitt at bedside speaks to pt about taking her to the OR to repair left tm5 wrist fracture today, pt alert & oriented at this time & talkative, + CMS to left fingers, + ROM to left fingers also . 07:14 General: Appears in no apparent distress, Behavior is appropriate for age, cooperative. hs1 Pain: Location: left arm Pain currently is 2 out of 10 on a pain scale. Quality of pain is described as throbbing. Neurological: No deficits noted. Respiratory: No deficits noted. GI: other patient is aware of NPO status. Derm: Reports itching - as a side effect from pain medication. 08:04 General: Appears in no apparent distress, Behavior is appropriate for age, cooperative, hs1 patient reports very itchy. MD returned call no new orders received by Dr Villa. Pediatric nurses aware of patient and subsequent phone call with Ortho MD regarding itching/anxiety. . Respiratory: No deficits noted. Airway is patent Respiratory effort is even, unlabored, Respiratory pattern is regular, symmetrical. Vital Signs: 03:29 BP 148 / 89; Pulse 89; Resp 18; Temp 98.3(TE); Pulse Ox 96% on R/A; Weight 121.56 kg nn1 (R); Height 5 ft. 3 in. (160.02 cm); Pain 6/10; 04:01 BP 141 / 81 (auto/); tm5 04:02 Pulse 80; Resp 18; Pulse Ox 96% ; Pain 8/10; tm5 05:00 BP 145 / 72 (auto/); tm5 05:00 Pulse 96 MON; Pulse Ox 97% ; tm5 05:10 BP 128 / 65 (auto/); tm5 05:10 Pulse 92 MON; Resp 16; Pulse Ox 98% on 4 lpm NC; tm5 05:15 BP 143 / 89 (auto/); tm5 05:15 Pulse 97 MON; Pulse Ox 98% ; tm5 05:22 BP 149 / 96 (auto/); tm5 05:22 Pulse 94 MON; Resp 18 S; Pulse Ox 96% on 4 lpm NC; tm5 05:25 BP 143 / 90 (auto/); tm5 05:25 Pulse 86 MON; Resp 18 S; Pulse Ox 98% on 4 lpm NC; tm5 05:35 BP 141 / 78 (auto/); hs1 05:40 BP 120 / 89 (auto/); tm5 05:40 Pulse 102 MON; Pulse Ox 98% ; tm5 05:45 BP 153 / 82 (auto/); tm5 05:45 Pulse 95 MON; Resp 18 S; Pulse Ox 98% on 4 lpm NC; tm5 06:01 BP 131 / 74 (auto/); tm5 06:01 Pulse 100 MON; tm5 06:16 BP 163 / 69 (auto/); tm5 06:16 Pulse 97 MON; tm5 06:26 BP 148 / 54 (auto/); tm5 06:26 Pulse 95 MON; Resp 18 S; Temp 98.7(TE); Pain 6/10; tm5 06:30 BP 153 / 89 (auto/); tm5 06:30 Pulse 100 MON; Resp 18 S; Temp 98.3(TE); Pulse Ox 93% on R/A; Pain 5/10; tm5 08:04 BP 148 / 91 RA Sitting (auto/lg); Pulse 97; Resp 16; Temp 98.3(O); Pulse Ox 95% on R/A; jrd Pain 7/10; 03:29 Body Mass Index 47.47 (121.56 kg, 160.02 cm) nn1 Vitals: 03:29 Log In Time: March 11, 2016 at 03:16. nn1 ED Course: 03:15 Patient visited by Jory Quiroz Reg. hs2 03:15 Patient moved to Waiting hs2 03:21 Patient moved to 3 nn1 03:23 Triage Initiated nn1 03:36 Ishmael Jade DO is Attending Physician. mm11 03:36 Patient visited by Ishmael Jade DO. mm11 03:49 Patient visited by Ishmael Jade DO. mm11 03:55 Inserted saline lock: 20 gauge in right forearm The patient tolerated the procedure tm5 well. 04:02 Patient visited by Nataliia Robledo RN. tm5 04:02 The patient / caregiver is instructed regarding the plan of care and ED course. Pulse tm5 ox on. NIBP on. left arm elevated up on pillows . Family accompanied patient. 04:21 Patient name changed from Sonya\S\A\S\Chavez\S\ to Sonya\S\Sully\S\Chavez. EDMS 04:21 [facility] Payment Agreement was scanned into [employer] and attached to record. [facility] 04:34 Patient visited by Ishmael Jade DO. mm11 05:14 EKG done. (by ED staff). Reviewed by Ishmael Jade DO. jmv 05:24 Patient visited by Ishmael Jade DO. mm11 05:52 Yuval Nesbitt is Hospitalizing Provider. mm11 06:06 Admission Orders was scanned into [employer] and attached to record. tmm1 06:28 Awaiting bed assignment. tm5 06:29 No procedures done that require assistance. tm5 06:50 Patient visited by Nataliia Robledo,HODA. tm5 07:32 Wrist (AP\E\Lat) Returned. EDMS 08:05 Patient visited by James Gomez PCA. jrd 14:13 T-Sheet-- Draft Copy was scanned into [employer] and attached to record. gb 14:13 ECG/EKG was scanned into [employer] and attached to record. gb 14:14 Consents was scanned into [employer] and attached to record. gb 14:14 [place] Protocol was scanned into [employer] and attached to record. gb M. Sedation: 05:08 Pre-procedure: Name of procedure: left wrist fracture reduction Monitoring RN: Nataliia tm5 Meena DRUMMOND Other Staff: Dr Nesbitt, Respiratory therapy Derik Keller Reviewed instructions and expectations with patient, Has had drug/anesthesia reactions to known per pt Reviewed patient's current meds list. shelter monitor on. Cardiac rhythm Sinus rhythm Pulse ox on. Oxygen via nasal cannula \T\ 4L/min 05:08 Q 5 minute assessment Level of Consciousness: Alert / Oriented Color: [place] Skin: Warm / Dry Pain: 05:08 See Trend VS 05:16 Pre-procedure: Other Staff: Dr Jade pushing medications tm5 05:16 Intra-procedure: Procedure began at 05:16 05:16 Intra-procedure: Patient response: remains sedated, skin warm/dry, obeys commands, resps even/unlabored, IV patent. 05:32 Post-procedure: Procedure ended at 05:22 the total procedure time was less than [address] Nesbitt splinted left wrist & elevated left arm up on pillow, pt is awake & complains of pain to left wrist 07/30 05:45 Meets D/C Criteria: Taking PO fluids, Skin is warm and dry, LOC is at preprocedure tm5 level, Motor / Sensory control is returned, Protective reflexes are intact, Written post-sedation instructions are given, Pt is admitted to hospital or transferred to another facility. Administered Medications: 04:06 Drug: Dilaudid - HYDROmorphone 0.5 mg [hydromorphone 1 mg/mL injection syringe (0.5 tm5 mL)] Route: IVP; Site: right forearm; 04:51 Follow up: Response: No Adverse Reaction; Pain is decreased tm5 04:06 Drug: Ondansetron 4 mg Route: IVP; Site: right forearm; tm5 04:51 Follow up: Response: Nausea is resolved; No Adverse Reaction tm5 05:01 Drug: NS 0.9% 1000 ml [sodium chloride 0.9 % intravenous solution] Route: IV; Rate: 100 tm5 mL/hr; Site: right forearm; 05:12 Not Given (Other Intervention Used): Propofol (PF)(Moderate Sedation, 0.5mg/kg) 0.5 mm11 mg/kg IVP Per protocol; give every 1-2 minutes until desired level of sedation 05:17 Drug: Propofol (PF)(Moderate Sedation, 0.5mg/kg) 60 mg {Note: 180 mg Propofol given by tm5 Dr Jade.} Route: IVP; Site: right forearm; 05:29 Follow up: Response: No Adverse Reaction tm5 05:38 CANCELLED (Other Intervention Used): Propofol (PF, 1mg/kg) 120 mg IVP once mm11 05:38 Drug: Dilaudid - HYDROmorphone 0.5 mg [hydromorphone 1 mg/mL injection syringe (0.5 tm5 mL)] Route: IVP; Site: right forearm; 06:27 Follow up: Response: No Adverse Reaction; Pain is decreased tm5 06:27 Drug: diphenhydrAMINE 25 mg [diphenhydramine 50 mg/mL injection solution (0.5 mL)] tm5 Route: IVP; Site: right forearm; Attachments: 14:14 Consents gb 14:14 [place] Protocol gb RT: 05:43 Sedation Time: 35Minutes. O2 via nasal cannula \T\ 4L/min. jc3 05:43 O2 via ETCO2 on patient throughout procedure. jc3 Order Results: Radiology Order: Wrist (AP\E\Lat) Test: Wrist (AP\E\Lat) REASON FOR EXAMINATION: post reduction; Clinical: Post reduction.; ; Technique: AP and lateral views of the left wrist.; ; Findings:; Comminuted displaced fracture of the distal radius and ulna are again; appreciated.; ; Impression:; Comminuted displaced fractures of the distal radius and ulna.; ; ; Signed by; Christoph Epstein MD 03/11/2016 07:19 A; Outcome: 05:53 Decision to Hospitalize by Provider. mm11 06:29 Discharge Assessment: patient administered narcotics - yes. Patient was admitted to the [address] or transferred to another facility. No special radiology studies were completed. 08:05 The following High Risk Discharge criteria are identified: None. Admitted to Pediatrics hs1 accompanied by nurse, accompanied by tech, via wheelchair, with chart. Condition: stable. Admission hand-off: Report called to Jodee DRUMMOND. Property sent home with patient. 08:18 Patient left the ED. [facility] Signatures: Dispatcher [employer] EDMS Wendi Mchugh, Reg Reg gb Ishmael Jade, DO DO mm11 James Chaves jc3 Anahi Balderas RN RN hs1 Neyda Looney, SHOW DOG TRAINER SHOW DOG TRAINER tmm1 James Gomez, SHOW DOG TRAINER SHOW DOG TRAINER Lizzette Cullen Nikkole, RN RN nn1 Jory Quiroz, Reg Reg hs2 Bear Willson, SHOW DOG TRAINER SHOW DOG TRAINER Nataliia Hoover,RN RN 5 Corrections: (The following items were deleted from the chart) 03:35 03:21 Nicole Sandoval,HODA is Primary Nurse. [facility] 03:43 03:29 BP 148 / 289; Pulse 89bpm; Resp 18bpm; Pulse Ox 96% RA; Temp 98.3F Temporal; nn1 121.56 kg Reported; Height 5 ft. 3 in.; BMI: 47.4; Pain 6/10; nn1 05:19 05:17 Propofol (PF)(Moderate Sedation, 0.5mg/kg) 60 mg IVP in right forearm 5 5 05:28 05:20 Propofol (PF, 1mg/kg) 120 mg IVP in right forearm 5 5 05:44 05:17 Propofol (PF)(Moderate Sedation, 0.5mg/kg) 60 mg IVP in right forearm tm5 tm5 Chart Complete MTDD
--- NOTE | 2016-03-13 09:18 | EDDOCDS ---
Physician Documentation [facility] Name: Sonya Chavez Age: 45 yrs Sex: Female : 1970 Arrival Date: 03/11/2016 Time: 03:13 Bed 3 Private MD: Disposition: 03/11/16 05:53 Hospitalization ordered by Yuval Nesbitt for Inpatient Admission. Preliminary diagnosis is Colles' fracture of left radius. - Bed requested for M PED. - Status is Inpatient Admission. hs1 - Condition is Stable. - Problem is an acute exacerbation. - Symptoms have improved. Historical: - Allergies: Codeine Sulfate; Percocet; Reglan; Phenergan; - Home Meds: 1. Lexapro 30mg Oral tab 1 tab once daily 2. omeprazole 40 mg Oral cpDR 1 cap once daily 3. methotrexate sodium 7.5 mg Oral tab 1 tab once wkly 4. folic acid 20 mg Oral cap 5. Seroquel 200 mg Oral tab 1 tab once daily 6. doxycycline hyclate Unknown Oral for bronchitis and sinus infection - PMHx: GERD; Arthritis; neuropathy; - PSHx: Plates in left ankle - 2000; Plate removal left ankle -2003; Tubal ligation; Cystectomy; - Social history: Smoking status: Patient states was never smoker of tobacco. No barriers to communication noted, The patient speaks fluent Martiniquais, Speaks appropriately for age. - Family history: Not pertinent. - : The pt / caregiver states he / she is not on anticoagulants. Home medication list is obtained from the patient. - Exposure Risk Screening:: None identified. 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 3 in. (160.02 cm); Pain 6/10; 04:01 BP 141 / 81 (auto/); tm5 04:02 Pulse 80; Resp 18; Pulse Ox 96% ; Pain 8/10; tm5 05:00 BP 145 / 72 (auto/); tm5 05:00 Pulse 96 MON; Pulse Ox 97% ; tm5 05:10 BP 128 / 65 (auto/); tm5 05:10 Pulse 92 MON; Resp 16; Pulse Ox 98% on 4 lpm NC; tm5 05:15 BP 143 / 89 (auto/); tm5 05:15 Pulse 97 MON; Pulse Ox 98% ; tm5 05:22 BP 149 / 96 (auto/); tm5 05:22 Pulse 94 MON; Resp 18 S; Pulse Ox 96% on 4 lpm NC; tm5 05:25 BP 143 / 90 (auto/); tm5 05:25 Pulse 86 MON; Resp 18 S; Pulse Ox 98% on 4 lpm NC; tm5 05:35 BP 141 / 78 (auto/); hs1 05:40 BP 120 / 89 (auto/); tm5 05:40 Pulse 102 MON; Pulse Ox 98% ; tm5 05:45 BP 153 / 82 (auto/); tm5 05:45 Pulse 95 MON; Resp 18 S; Pulse Ox 98% on 4 lpm NC; tm5 06:01 BP 131 / 74 (auto/); tm5 06:01 Pulse 100 MON; tm5 06:16 BP 163 / 69 (auto/); tm5 06:16 Pulse 97 MON; tm5 06:26 BP 148 / 54 (auto/); tm5 06:26 Pulse 95 MON; Resp 18 S; Temp 98.7(TE); Pain 6/10; tm5 06:30 BP 153 / 89 (auto/); tm5 06:30 Pulse 100 MON; Resp 18 S; Temp 98.3(TE); Pulse Ox 93% on R/A; Pain 5/10; tm5 08:04 BP 148 / 91 RA Sitting (auto/lg); Pulse 97; Resp 16; Temp 98.3(O); Pulse Ox 95% on R/A; jrd Pain 7/10; 03:29 Body Mass Index 47.47 (121.56 kg, 160.02 cm) nn1 Procedures: 05:26 Moderate sedation: Pre-procedure assessment: the patient has been NPO 6 hour(s) prior mm11 to arrival, ASA physical classification: II - mild/mod systemic disease that does not interfere with daily routines, Airway assessment: able to hyperextend neck, able to maintain airway, can open mouth without difficulty, Mallampati classification of tongue size: II - faucial pillars and soft palate can be visualized, but uvula is masked by the base of the tongue, Monitoring during procedure: nurse at bedside at all times, elevator operator, continuous pulse oximetry, End Tidal CO2 Medications employed: Propofol _ mg? 180 mgs. Post-procedure assessment: the patient is mildly sedated, Respiratory status: even and unlabored, a reversal agent was not used, Complications: none. Total time spent by provider performing sedation 15 minutes. MDM: 03:49 IV Saline Lock ordered. mm11 03:50 Dilaudid - HYDROmorphone 0.5 mg IVP once ordered. mm11 03:50 Ondansetron 4 mg IVP once ordered. mm11 04:12 Financial registration complete. [facility] 04:21 [facility] Payment Agreement was scanned into [employer] and attached to record. slh 04:36 NS 0.9% 1000 ml IV at 100 mL/hr continuous ordered. mm11 04:36 Propofol (PF)(Moderate Sedation, 0.5mg/kg) 0.5 mg/kg IVP Per protocol; give every 1-2 mm11 minutes until desired level of sedation ordered. 04:36 Call Respiratory ordered. mm11 04:36 Airway Cart to bedside ordered. mm11 04:36 Continuous Prosthodontist/Educator and SaO2 with q 5 minute VS during procedure ordered. mm11 04:36 Initiate continuous wave form capnography monitoring ordered. mm11 04:36 Oxygen at 4L/Min NC or Home dosage ordered. mm11 04:37 ECG WITH READING ER PHYS+CARDIAG ordered. EDMS 04:52 Call Respiratory complete. tmm1 05:12 Propofol (PF)(Moderate Sedation, 0.5mg/kg) 60 mg IVP Per protocol; give every 1-2 mm11 minutes until desired level of sedation ordered. 05:25 Dilaudid - HYDROmorphone 0.5 mg IVP once ordered. mm11 05:44 Wrist (AP\E\Lat) Ordered. EDMS 06:06 Admission Orders was scanned into [employer] and attached to record. tmm1 06:18 diphenhydrAMINE 25 mg IVP once ordered. mm11 06:21 NOTHING BY MOUTH+DIET ordered. EDMS 07:29 Wrist, complete Ordered. EDMS 14:13 T-Sheet-- Draft Copy was scanned into [employer] and attached to record. gb 14:13 ECG/EKG was scanned into [employer] and attached to record. gb 14:14 Consents was scanned into [employer] and attached to record. gb 14:14 [place] Protocol was scanned into [employer] and attached to record. gb Administered Medications: 04:06 Drug: Dilaudid - HYDROmorphone 0.5 mg [hydromorphone 1 mg/mL injection syringe (0.5 tm5 mL)] Route: IVP; Site: right forearm; 04:51 Follow up: Response: No Adverse Reaction; Pain is decreased tm5 04:06 Drug: Ondansetron 4 mg Route: IVP; Site: right forearm; tm5 04:51 Follow up: Response: Nausea is resolved; No Adverse Reaction tm5 05:01 Drug: NS 0.9% 1000 ml [sodium chloride 0.9 % intravenous solution] Route: IV; Rate: 100 tm5 mL/hr; Site: right forearm; 05:12 Not Given (Other Intervention Used): Propofol (PF)(Moderate Sedation, 0.5mg/kg) 0.5 mm11 mg/kg IVP Per protocol; give every 1-2 minutes until desired level of sedation 05:17 Drug: Propofol (PF)(Moderate Sedation, 0.5mg/kg) 60 mg {Note: 180 mg Propofol given by tm5 Dr Jade.} Route: IVP; Site: right forearm; 05:29 Follow up: Response: No Adverse Reaction tm5 05:38 CANCELLED (Other Intervention Used): Propofol (PF, 1mg/kg) 120 mg IVP once mm11 05:38 Drug: Dilaudid - HYDROmorphone 0.5 mg [hydromorphone 1 mg/mL injection syringe (0.5 tm5 mL)] Route: IVP; Site: right forearm; 06:27 Follow up: Response: No Adverse Reaction; Pain is decreased tm5 06:27 Drug: diphenhydrAMINE 25 mg [diphenhydramine 50 mg/mL injection solution (0.5 mL)] tm5 Route: IVP; Site: right forearm; Signatures: Dispatcher [employer] EDMS Wendi Mchugh, Reg Reg Ishmael Momin, DO mm11 Anahi Balderas RN RN hs1 McLear, Neyda, BUTTER FAT TESTER BUTTER FAT TESTER tmm1 Lizzette Unger Nikkole, RN RN nn1 Loi Cuevas RN RN sa aNtaliia Robledo RN RN tm5 The chart was reviewed and I authenticate all verbal orders and agree with the evaluation and treatment provided.Corrections: (The following items were deleted from the chart) 05:38 05:25 Propofol (PF, 1mg/kg) 120 mg IVP once ordered. mm11 mm11 05:38 05:28 Propofol (PF, 1mg/kg) 120 mg IVP once ordered. tm5 mm11 06:18 05:26 Forearm (Radius/Ulna)+XR ordered. EDMS EDMS Attachments: 04:21 [facility] Payment Agreement [facility] 06:06 Admission Orders tmm1 14:13 T-Sheet-- Draft Copy gb 14:13 ECG/EKG gb Chart Complete MTDD
== END 2016-03-12 12:05 | disposition home or self-care (01) ==
LOC: M ED 03:13 → M ED INP 05:45 → M PED 08:38
DX: S52.571A Other intraarticular fracture of lower end of right radius, initial encounter for closed fracture (principal); W10.8XXA Fall (on) (from) other stairs and steps, initial encounter; Y92.89 Other specified places as the place of occurrence of the external cause; Y93.89 Activity, other specified; Y99.8 Other external cause status; M06.9 Rheumatoid arthritis, unspecified; K21.9 Gastro-esophageal reflux disease without esophagitis; F32.9 Major depressive disorder, single episode, unspecified; F41.9 Anxiety disorder, unspecified; G62.9 Polyneuropathy, unspecified; E66.9 Obesity, unspecified; Z79.899 Other long term (current) drug therapy; Z88.5 Allergy status to narcotic agent; Z88.8 Allergy status to other drugs, medicaments and biological substances
CPT/HCPCS: 25605; 25608; 73100; 73110; 93005; 93041; 96374; 96375; 96376; 99285; C1776; J0690; J1100; J1170; J1200; J1885; J2250; J2405; J2710; J3010